=== PATIENT | female | born 1960 | race African-American/Black ===

== ENCOUNTER 2018-07-07 11:15 | Emergency (ER) | payer SELFPAY ==
[~2018-07-07] VITALS: Ht 170.2 cm; Wt 169.0 kg
[2018-07-07 12:18] LABS: BASOPHILS # (AUTO) 0.02 x10^3/uL (0-0.1); BASOPHILS % (AUTO) 0 % (0-1); EOSINOPHILS # (AUTO) 0.03 x10^3/uL (0-0.4); EOSINOPHILS % (AUTO) 0 % (1-7); LYMPHOCYTES # (AUTO) 2.26 x10^3/uL (1-3.4); LYMPHOCYTES % (AUTO) 30 % (22-44); MD NO; MEAN CORPUSCULAR HEMOGLOBIN 31.2 pg (27.0-34.8); MEAN CORPUSCULAR HGB CONC 34.1 g/dL (32.4-35.8); MEAN CORPUSCULAR VOLUME 91.4 fL (80-100); MEAN PLATELET VOLUME 8.3 fL (7.4-10.4); MONOCYTES # (AUTO) 0.47 x10^3/uL (0.2-0.8); MONOCYTES % (AUTO) 6 % (2-9); NEUTROPHILS # (AUTO) 4.65 x10^3/uL (1.8-6.8); NEUTROPHILS % (AUTO) 63 % (42-75); PLATELET COUNT 269 x10^3/uL (130-400); RED BLOOD COUNT 4.39 x10^6/uL (3.82-5.3); RED CELL DISTRIBUTION WIDTH 15.1 % (9.6-15.2)
[2018-07-07 12:22] LABS: ALANINE AMINOTRANSFERASE 25 U/L (12-78); ANION GAP 9 mmol/L (5-15); CHLORIDE 112 mmol/L (98-107); CREATININE 1.22 mg/dL (0.55-1.02)
[2018-07-07 12:26] LABS: ALKALINE PHOSPHATASE 50 U/L (45-117); BILIRUBIN,TOTAL 0.6 mg/dL (0.2-1.0)
[2018-07-07] MEDS ORDERED: LISI2.5T PO (12:27)
[2018-07-07] MEDS ORDERED: LEVO25TA4 PO (12:28)
[2018-07-07] MEDS ORDERED: HYDR12.53 PO (12:28)
[2018-07-07] MEDS ORDERED: metroNIDAZOLE 500 MG TABLET PO ONE (13:30)
[2018-07-07] MEDS ORDERED: CEFTRIAXONE 250 MG IM ONE (13:30)
[2018-07-07] MEDS ORDERED: AZITHROMYCIN 500 MG TABLET PO ONE (13:30)
[2018-07-07] MEDS ORDERED: AZITHROMYCIN 500 MG TABLET ONE (13:45)
[2018-07-07] MEDS ORDERED: metroNIDAZOLE 500 MG TABLET ONE (13:45)
[2018-07-07] MEDS ORDERED: CEFTRIAXONE 250 MG ONE (13:46)
[2018-07-07 14:14] LABS: CLUE CELLS NONE SEEN (NONE SEEN); WET PREP WBCS NONE SEEN (FEW)
== END 2018-07-07 14:30 | disposition home or self-care (01) ==
LOC: ED 13:46
DX: N89.8 Other specified noninflammatory disorders of vagina (principal)
CPT/HCPCS: 36415; 80053; 84703; 85025; 87210; 87491; 87591; 87808; 96372; 99284; J0696